=== PATIENT | male | born 1985 | race Caucasian/White ===

== ENCOUNTER 2020-07-09 09:33 | Emergency (ER) | payer BC, SELFPAY ==
[2020-07-09 09:50] VITALS: BP 132/83; PULSE 70; RESP 21; TEMP 36.8; O2SAT 99; BMI 22.6
--- NOTE | 2020-07-09 10:24 | HMH.EDUTC ---
[facility] [place] Clinical Impression: Exposure to COVID-19 virus Disposition: Home, Self-Care Condition on Discharge: Good Instructions: Preventing the Spread of Coronavirus Discharge Instructions Additional Instructions: Drink plenty of fluids. Take tylenol for pain or fever. Follow up with your regular doctor. GO TO THE ER FOR ANY WORSENING SYMPTOMS Referrals: Twan Quiros MD [Primary Care Provider] - Forms: Work/School Release Time of Disposition: 10:27 Medical Decision Making - Medical Records Medical records reviewed: No: I reviewed the patient's medical records. - Sawyer Inquiry Pt receiving controlled substance: No Vital Signs: 07/09/20 09:50 07/09/20 10:28 Temperature 98.3 F 98.3 F Temperature Source Oral Pulse Rate 70 Pulse Rate [Left Brachial] 70 Respiratory Rate 21 21 Blood Pressure 132/83 Blood Pressure [Left Arm] 132/83 Blood Pressure Mean [Left Arm] 99 Blood Pressure Source [Left Arm] Automatic Cuff Blood Pressure Position [Left Arm] Sitting 02 Sat by Pulse Oximetry 99 Orders (Tests/Meds): ORDERS Category Date Time Status Covid-19 Nasal PCR Sendout Mateusz Routine Lab 07/09/20 09:55 Received [facility] [place] HPI - General Stated complaint: covid exposure Time Seen by Provider: 07/09/20 10:00 Mode of Arrival: Ambulatory Source of Information: Patient Limitations: No Limitations Description of Symptoms (Recalled from Triage Doc. by RN): PATIENT REQUESTING COVID TEST D/T BEING INDIRECTLY EXPOSED. DENIES SYMPTOMS HEENT Symptoms (Recalled from RN notes): No Resp Symptoms (Recalled from RN notes): No Skin Symptoms (Recalled from RN notes): No MS Symptoms (Recalled from RN notes): No Functional Status (Recalled from RN notes): WNL - History of Present Illness Provider Complaint: He thinks that he was exposed to covid several days ago. He denies any symptoms other than a runny nose. - Related Data Home Medications Medication Instructions Recorded Confirmed Cetirizine HCl [Zyrtec] 10 mg PO DAILY 12/10/18 07/09/20 Allergies Allergy/AdvReac Type Severity Reaction Status Date / Time No Known Allergies Allergy Verified 12/10/18 23:40 - Worker's Comp Is this a Worker's Comp case?: No [facility] History - Hepatitis A Screen Drug use history?: No High risk sexual behaviors?: No History of sexually transmitted infection?: No Currently employed?: No Childcare worker?: No Do you have indoor plumbing?: Yes Do you have electricity?: Yes Attestation statement:: This patient has been screened for Hepatitis A risk factors. I have reviewed the patient's past medical history: Yes Medical History: Denies:: Diabetes Mellitus Type 1, Diabetes Mellitus Type 2, Internal Pacemaker Other Surgeries: No: Pacemaker - Social History Smoking Status: Current every day smoker Tobacco Type: cigarettes # Packs/Day (cigarettes): 1 Alcohol Intake: never Occupational Status: other ROS Obtained: Yes All systems reviewed & no additional complaints - Constitutional Constitutional: Reports system reviewed and no additional complaints, except as docu - Eyes Eyes: Reports system reviewed and no additional complaints, except as docu - ENT Ears, Nose, Mouth, and Throat: Reports system reviewed and no additional complaints, except as docu - Cardiovascular Cardiovascular: Reports system reviewed and no additional complaints, except as docu - Respiratory Respiratory: Yes system reviewed and no additional complaints, except as docu - Gastrointestinal Gastrointestingal: Reports: system reviewed and no additional complaints, except as docu Physical Exam - General General appearance: alert, in no apparent distress - Head Head exam: atraumatic, normocephalic, normal inspection - Eye Eye exam: Present: normal appearance, PERRL, EOMI - ENT ENT exam: Present: normal exam, normal oropharynx, mucous membranes moist, TM's normal bilaterally, normal external ear exam
[2020-07-09 10:28] VITALS: BP 132/83; PULSE 70; RESP 21; TEMP 36.8; O2SAT 99
[2020-07-10 13:38] LABS: Covid-19 Nasal PCR Sendout Lex NOT DETECTED
== END 2020-07-09 10:32 | disposition home or self-care (01) ==
PROVIDERS: Emergency Provider Nurse Practitioner Family; PCP Internal Medicine Adolescent Medicine
DX: Z20.828 Contact with and (suspected) exposure to other viral communicable diseases (principal); F17.210 Nicotine dependence, cigarettes, uncomplicated
CPT/HCPCS: 99201; U0004

== ENCOUNTER 2021-03-25 14:38 | Emergency (ER) | payer SELFPAY ==
[2021-03-25 14:38] VITALS: BP 119/80; PULSE 64; RESP 16; TEMP 36.3; O2SAT 97; BMI 21.9
--- NOTE | 2021-03-25 14:47 | HMH.EDGENADL ---
ED Disposition Clinical Impression: Nausea and vomiting Qualifiers: Vomiting type: unspecified Vomiting Intractability: non-intractable Qualified Code(s): R11.2 - Nausea with vomiting, unspecified Disposition: Home, Self-Care Condition on Discharge: Good Instructions: Nausea and Vomiting-Adult, DI for Alcohol Poisoning Additional Instructions: You have been evaluated for nausea, headache after alcohol drinking. Please hydrate. Take ibuprofen and Zofran. Avoid alcohol. Follow-up with your primary care doctor. Return to the emergency department for any new or worsening symptoms. Prescriptions: Ibuprofen [Ibuprofen 600mg Tablet] 600 mg PO Q6 #20 tab Transmission Status: Pending to [id number] ondansetron HCL [Ondansetron 4mg tab*] 4 mg PO Q6 PRN #12 tab PRN Reason: Nausea And Vomiting Transmission Status: Pending to [id number] Referrals: Twan Quiros MD [Primary Care Provider] - Time of Disposition: 16:49 - Critical Care Critical Care Time: No Attestation: On , the high probability of a clinically significant, sudden or life threatening deterioration of the following system(s) required my full and direct attention, intervention and personal management. The time I documented below is in addition to time spent performing reported procedures but includes the following listed in this critical care notation. Medical Decision Making - Medical Records Medical records reviewed: Yes: I reviewed the patient's medical records. - Sawyer Inquiry Pt receiving controlled substance: No Vital Signs: 03/25/21 14:38 Temperature 97.4 F L Temperature Source Oral Pulse Rate [Right Radial] 64 Respiratory Rate 16 Blood Pressure [Right Arm] 119/80 Blood Pressure Mean [Right Arm] 93 Blood Pressure Source [Right Arm] Automatic Cuff Blood Pressure Position [Right Arm] Right Lateral 02 Sat by Pulse Oximetry 97 Oxygen Delivery Method Room Air - Lab Data Lab Results 03/25/21 14:54: WBC 10.8, RBC 5.08, Hgb 15.4, Hct 45.2, MCV 88.9, MCH 30.4, MCHC 34.2, RDW 13.2, Plt Count 205, MPV 8.6, Neut % (Auto) 66.5, Lymph % (Auto) 22.8, Bandera % (Auto) 5.9, Eos % (Auto) 3.9, Baso % (Auto) 0.9, Neut # (Auto) 7.2, Lymph # (Auto) 2.5, Bandera # (Auto) 0.6, Eos # (Auto) 0.4, Baso # (Auto) 0.1 03/25/21 14:54: Sodium 143, Potassium 4.1, Chloride 107, Carbon Dioxide 27, Anion Gap 13.1, BUN 15, Creatinine 0.70, Estimated Creat Clear 130, Estimated GFR 127, Est GFR ( Amer) 154, Glucose 112 H, Calcium 9.4, Total Bilirubin 0.6, AST 31, ALT 24, Alkaline Phosphatase 85, Total Protein 7.8, Albumin 4.9, Globulin 2.9, Albumin/Globulin Ratio 1.7, Lipase 24 Result diagrams: 03/25/21 14:54 03/25/21 14:54 Orders (Tests/Meds): ED MEDICATIONS Discontinued Medications Generic Name Dose Route Start Last Admin Trade Name Freq PRN Reason Stop Dose Admin Sodium Chloride 1,000 mls @ 999 mls/hr 03/25/21 15:00 03/25/21 14:54 Sod Chlor 0.9% 1000ml Bag IV 03/25/21 16:00 999 mls/hr .Q1H1M CESAR Administration Ibuprofen 600 mg 03/25/21 14:47 03/25/21 14:55 Ibuprofen 600 Mg Tablet PO 03/25/21 14:48 600 mg ONCE ONE Administration Ondansetron HCl 4 mg 03/25/21 14:46 03/25/21 14:55 Ondansetron 4mg/2ml Vial IV 03/25/21 14:47 4 mg ONCE ONE Administration Medical Decision Narrative: In summary this is a 35-year-old male presenting to the emergency department with nausea and generalized malaise after drinking excessive alcohol last night. Patient clinically stable on arrival. Vital signs within normal limits. Differential diagnoses include acute pancreatitis, dehydration, anion gap. Will obtain CBC, CMP, lipase. Patient given IV fluids, 600 mg ibuprofen and 4 mg IV Zofran. Initial laboratory results are reassuring. Lipase within normal limits. No renal insufficiency. Electrolytes within normal limits. Glucose 112. On reassessment patient feeling much better after fluids, Zofran, ibuprofen.
[2021-03-25 14:59] VITALS: BP 100/73; PULSE 59; O2SAT 97
[2021-03-25 15:02] LABS: Basophils # 0.1 K/mm3 (0-0.2); Basophils % 0.9 % (0.1-2.0); Eosinophils # 0.4 K/mm3 (0.0-0.4); Eosinophils % 3.9 % (0.1-12.0); Hematocrit 45.2 % (42.0-52.0); Hemoglobin 15.4 g/dL (14.1-18.0); Lymphocytes # 2.5 K/mm3 (0.7-4.5); Lymphocytes % 22.8 % (10-50); Mean Corpuscular HGB Conc 34.2 g/dL (31.8-35.4); Mean Corpuscular Hemoglobin 30.4 pg (27.0-31.2); Mean Corpuscular Volume 88.9 fl (80-94); Mean Platelet Volume 8.6 fl (7.4-10.4); Monocytes # 0.6 K/mm3 (0.1-1.0); Monocytes % 5.9 % (1.7-9.3); Neutrophils # 7.2 K/mm3 (1.8-7.8); Neutrophils % 66.5 % (37.0-80.0); Platelet Count 205 K/mm3 (142-424); Red Blood Count 5.08 M/mm3 (4.60-6.20); Red Cell Distribution Width 13.2 % (11.5-17.5); White Blood Count 10.8 K/mm3 (4.8-10.8)
--- NOTE | 2021-03-25 15:03 | PC.NURSE ---
Pt resting with a pillow and blanket on stretcher at this time.
[2021-03-25 15:11] LABS: Chloride 107 mmol/L (98-107); Potassium 4.1 mmoL/L (3.5-5.1); Sodium 143 mmol/L (136-145)
[2021-03-25 15:14] LABS: Alanine Aminotransferase 24 U/L (12-78); Albumin Level 4.9 g/dl (3.5-5.0); Albumin/Globulin Ratio 1.7 (1.1-1.8); Alkaline Phosphatase 85 U/L (38-126); Anion Gap 13.1 mEq/L (5-15); Aspartate Amino Transferase 31 U/L (17-59); Bilirubin,Total 0.6 mg/dl (0.2-1.3); Blood Urea Nitrogen 15 mg/dl (9-20); Calcium 9.4 mg/dl (8.4-10.2); Carbon Dioxide 27 mmol/L (22.0-30.0); Creatinine Clearance Estimated 130 mL/min (50-200); Estimated Glomerular Filt Rate 127 ml/min (>60); GFR (African American) 154 ML/MIN (>60); Globulin 2.9 g/dL (1.3-3.2); Glucose 112 mg/dl (74-100); Lipase 24 U/L (23-300); Total Protein,Serum 7.8 g/dl (6.3-8.2)
[2021-03-25 16:33] VITALS: BP 105/66; PULSE 59; O2SAT 98
[2021-03-25 17:00] VITALS: BP 108/70; PULSE 66; O2SAT 97
[2021-03-25 17:01] VITALS: BP 108/70; PULSE 68; RESP 16; TEMP 36.6
== END 2021-03-25 17:24 | disposition home or self-care (01) ==
PROVIDERS: Emergency Provider Emergency Medicine; PCP Internal Medicine Adolescent Medicine
DX: F10.10 Alcohol abuse, uncomplicated (principal); R11.2 Nausea with vomiting, unspecified; R53.1 Weakness; F17.210 Nicotine dependence, cigarettes, uncomplicated
CPT/HCPCS: 80053; 83690; 85025; 96365; 96375; 99282; J2405

== ENCOUNTER → 2022-08-07 09:23 | Outpatient (CLI) | payer SELFPAY | PROVIDERS: Visit Provider Nurse Practitioner Family | DX: Z02.4 Encounter for examination for driving license (principal) ==

== ENCOUNTER → 2023-01-15 13:22 | Outpatient (CLI) | payer BC, SELFPAY ==
[2023-01-15 14:41] LABS: Basophils # 0.1 K/mm3 (0-0.2); Basophils % 0.9 % (0.1-2.0); Eosinophils # 0.3 K/mm3 (0.0-0.4); Eosinophils % 2.7 % (0.1-12.0); Hemoglobin 15.2 g/dL (14.1-18.0); Lymphocytes % 32.8 % (10-50); Mean Corpuscular HGB Conc 31.7 g/dL (31.8-35.4); Mean Corpuscular Hemoglobin 30.2 pg (27.0-31.2); Mean Corpuscular Volume 95.3 fl (80-94); Mean Platelet Volume 9.3 fl (7.4-10.4); Monocytes # 0.6 K/mm3 (0.1-1.0); Monocytes % 6.6 % (1.7-9.3); Neutrophils # 5.1 K/mm3 (1.8-7.8); Neutrophils % 56.9 % (37.0-80.0); Platelet Count 249 K/mm3 (142-424); Red Blood Count 5.04 M/mm3 (4.60-6.20); Red Cell Distribution Width 13.4 % (11.5-17.5)
[2023-01-15 14:46] LABS: Alanine Aminotransferase 24 U/L (12-78); Albumin Level 4.5 g/dl (3.5-5.0); Albumin/Globulin Ratio 1.9 (1.1-1.8); Alkaline Phosphatase 74 U/L (38-126); Anion Gap 17.4 mEq/L (5-15); Aspartate Amino Transferase 32 U/L (17-59); Bilirubin,Total 0.4 mg/dl (0.2-1.3); Blood Urea Nitrogen 11 mg/dl (9-20); Calcium 9.2 mg/dl (8.4-10.2); Carbon Dioxide 26 mmol/L (22.0-30.0); Chloride 101 mmol/L (98-107); Chol/HDL Ratio 3.5 (1-3.5); Cholesterol 141 mg/dl (140-200); Estimated Glomerular Filt Rate 126 ml/min (>60); GFR (African American) 152 ML/MIN (>60); Globulin 2.4 g/dL (1.3-3.2); Glucose 90 mg/dl (74-100); HDL Cholesterol 40 mg/dl (40-60); Potassium 4.4 mmoL/L (3.5-5.1); Sodium 140 mmol/L (136-145); Total Protein,Serum 6.9 g/dl (6.3-8.2); Triglycerides 83 mg/dl (30-150); VLDL Cholesterol 17 mg/dL (0-40)
[2023-01-15 15:02] LABS: 25-OH Vitamin D, Total 39.5 ng/mL (30-100)
[2023-01-15 15:16] LABS: Thyroid Stimulating Hormone 0.82 uIU/mL (0.465-4.68)
== END ==
PROVIDERS: PCP Nurse Practitioner Family; Visit Provider Nurse Practitioner Family
DX: L08.9 Local infection of the skin and subcutaneous tissue, unspecified; W57.XXXA Bitten or stung by nonvenomous insect and other nonvenomous arthropods, initial encounter; S40.261D Insect bite (nonvenomous) of right shoulder, subsequent encounter; B95.7 Other staphylococcus as the cause of diseases classified elsewhere
CPT/HCPCS: 80053; 80061; 82306; 84443; 85025; 87070; 87077; 87186; 87205

== ENCOUNTER 2023-07-20 16:42 | Emergency (ER) | payer SELFPAY ==
[2023-07-20 17:05] VITALS: BP 120/85; PULSE 88; RESP 18; TEMP 37.5; O2SAT 99; BMI 22.7
--- NOTE | 2023-07-20 17:05 | EXP.UTC ---
Discharge Plan Disposition Patient Disposition: Home, Self-Care Condition: Good Prescriptions Prescriptions: New benzonatate [benzonatate] 100 mg capsule 100 mg PO TIDP PRN (Reason: Cough) Qty: 30 0RF ondansetron 4 mg Tablet,Disintegrating 4 mg PO Q8H PRN (Reason: Nausea) Qty: 12 0RF Referrals Follow up/Referrals: Jorge Vilchis MD [Primary Care Provider] - See instructions Activity Restrictions/Add. Instructions Additional Instructions/Restrictions: Drink plenty of fluids. Take tylenol or ibuprofen for pain or fever. Take the medications as directed. Follow up with your regular doctor. GO TO THE ER FOR ANY WORSENING SYMPTOMS Clinical Impressions Clinical Impression: Acute viral syndrome Stand Alone Forms Stand Alone Forms: Work/School Release Instructions Patient Instructions: DI for Viral Syndrome Discharge ED Provider: Pj Nesbitt [facility] General Stated complaint: WEAKNESS, DIARRHEA, CRAMPS Time Seen by Provider: 07/20/23 17:05 History of Present Illness Provider Complaint: He states that for the past 1 day he has had n/v/d, body aches, chills, low grade fever and malaise. Related Data Previous Rx's Medication Instructions Recorded benzonatate 100 mg capsule 100 mg PO TIDP PRN Cough #30 caps 07/20/23 ondansetron 4 mg disintegrating 4 mg PO Q8H PRN Nausea #12 tabs 07/20/23 tablet Allergies Allergy/AdvReac Type Severity Reaction Status Date / Time No Known Allergies Allergy Verified 07/05/23 08:31 [facility] Disclaimer: The information contained in this section may have been updated after the patient was seen, as this information can be updated by other users. Medical History (Updated 07/20/23 @ 17:29 by Pj Nesbitt APRN) Atypical chest pain Exposure to COVID-19 virus Surgical History (Updated 07/05/23 @ 08:32 by Debbie Kay MA) H/O wisdom tooth extraction History of tonsillectomy Social History (Updated 10/28/22 @ 13:42 by Mehreen Alexandra LPN) Smoking Status: Current every day smoker tobacco type: cigarettes packs per day: 1 alcohol intake: current substance use type: denies use current occupational status: other Travel in the last 8 weeks: None ROS Obtained: Yes All systems reviewed & no additional complaints except as documented Constitutional Constitutional: Reports chills and Reports fever(s) Eyes Eyes: Denies eye discharge ENT Ears, Nose, Mouth, and Throat: Reports as per HPI Cardiovascular Cardiovascular: Denies chest pain Respiratory Respiratory: Denies chest congestion and Reports cough Gastrointestinal Gastrointestingal: Reports nausea; Denies abdominal pain, constipation, cramping, diarrhea or vomiting Musculoskeletal Musculoskeletal: Denies arthralgias Integumentary/Breasts Skin/Breast: Denies rash Neurologic Neurologic: Denies paresthesias Physical Exam General General appearance: alert and in no apparent distress Head Head exam: atraumatic, normocephalic and normal inspection Eye Eye exam: Present normal appearance, PERRL and EOMI ENT ENT exam: Present normal exam, normal oropharynx, mucous membranes moist, TM's normal bilaterally and normal external ear exam Neck Neck exam: Present normal inspection, full ROM and trachea midline; Absent meningismus or lymphadenopathy Chest Chest inspection: Present normal inspection and symmetric chest wall rise; Absent tenderness Respiratory Respiratory exam: Present normal lung sounds bilaterally; Absent respiratory distress Cardiovascular Cardiovascular exam: Present regular rate and normal rhythm; Absent JVD Abdominal Exam Abdominal exam: Present soft and normal bowel sounds; Absent distention, tenderness or guarding Extremities Exam Extremities exam: Present normal inspection, full ROM and normal capillary refill; Absent calf tenderness Back Exam Back exam: Present normal inspection; Absent tenderness Neurological Exam Neurological exam: Present alert and o
[2023-07-20 17:24] LABS: UTC Influenza A Antigen Negative (Negative)
[2023-07-20 17:25] LABS: UTC Influenza B Antigen Negative (Negative)
[2023-07-20 17:54] VITALS: BP 120/85; PULSE 88; RESP 18; TEMP 37.5; O2SAT 99
== END 2023-07-20 17:54 | disposition home or self-care (01) ==
PROVIDERS: Emergency Provider Nurse Practitioner Family; PCP Emergency Medicine
DX: R10.9 Unspecified abdominal pain (principal); R11.2 Nausea with vomiting, unspecified; R19.7 Diarrhea, unspecified; R53.1 Weakness; R05.9 Cough, unspecified; R53.81 Other malaise; F17.210 Nicotine dependence, cigarettes, uncomplicated
CPT/HCPCS: 87635; 87804; 99204; 99212; G0463

== ENCOUNTER 2023-08-27 17:18 | Emergency (ER) | payer SELFPAY ==
[2023-08-27 17:40] VITALS: BP 143/80; PULSE 74; RESP 20; TEMP 36.9; O2SAT 99; BMI 23.1
--- NOTE | 2023-08-27 18:04 | EXP.UTC ---
Discharge Plan Disposition Patient Disposition: Home, Self-Care Condition: Good Prescriptions Prescriptions: New guaifenesin [Mucinex] 600 mg tablet extended release 12hr 1,200 mg PO BID PRN (Reason: cough) Qty: 20 0RF azithromycin [Zithromax Z-Ata] 250 mg tablet See Rx Instructions .ROUTE .COMPLEX 5 Days Qty: 6 0RF Rx Instructions: For 250 mg dose pack: take 500 mg today (day 1), then 250 mg for 4 days (days 2-5) prednisone [prednisone] 20 mg tablet 20 mg PO BID 5 Days Qty: 10 0RF ugbjpuimdieoncp-uhnuwebsn-VK [Bromfed DM] 2-30-10 mg/5 mL Syrup 10 ml PO Q4H PRN (Reason: Cough) Qty: 240 0RF albuterol sulfate [Proventil HFA] 90 mcg/actuation HFA aerosol inhaler 1 - 2 inh inhalation Q6H PRN (Reason: shortness of breath or wheezing) Qty: 8.5 0RF Referrals Follow up/Referrals: Yvon Black DO [Primary Care Provider] - See instructions Activity Restrictions/Add. Instructions Additional Instructions/Restrictions: Start antibiotic today. Be sure to complete entire prescription even if feeling better Monitor temp. Tylenol every 4 hours as needed and / or ibuprofen every 6 hours as needed ( As long as your primary care physician has told you that it ok to take both. For fever/aches/pains ER if no less than 101 despite Tylenol or Motrin Humidifier/vaporizer or hot steamy shower Inhaler every 4-6 hours as needed like we discussed. If unsure how to use it, ask pharmacist to demonstrate how. Should help open airways and improve cough, wheezing, and shortness of breath Mucinex during the day for your cough and cough suppressant only at night. Be sure to drink lots of water. *Bromfed may cause drowsiness. Know how it effects you (your child) before driving, caring for small child, or sending your child to school. Not other antihistamines/allergy medications while taking bromfed *Start steroid today. Helps with inflammation therefore, cough and wheezing. Follow directions on the package. Reviewed side effects. Patient reports taking them before. Follow up IMMEDIATELY for new or worsening of symptoms OR no noticeable improvement over the next 48-72 hours. 911 immediately for any life threatening symptoms such as chest pain or difficulty breathing Clinical Impressions Clinical Impression: Bronchitis Sinusitis Qualifiers: Sinusitis location: unspecified location Chronicity: unspecified Qualified Code(s): J32.9 - Chronic sinusitis, unspecified Instructions Patient Instructions: DI for Sinusitis, Sinusitis, Acute Bronchitis Discharge ED Provider: Sarah Murry [place] HPI General Stated complaint: cough. congestion Mode of Arrival: Ambulatory Source of Information: Patient Limitations: No Limitations Time Seen by Provider: 08/27/23 18:05 Description of Symptoms (Recalled from Triage Doc. by RN): PATIENT C/O COUGH AND CHEST CONGESTION X 4 WEEKS HEENT Symptoms (Recalled from RN notes): No Resp Symptoms (Recalled from RN notes): Yes Skin Symptoms (Recalled from RN notes): No MS Symptoms (Recalled from RN notes): No Functional Status (Recalled from RN notes): WNL History of Present Illness Provider Complaint: Patient states that he has having a cough for around a month and having chest congestion and at times he will cough up some mucous at times States that today he was still having some chest congestion and now loosing his voice so he came in to get it checked Related Data Previous Rx's Medication Instructions Recorded albuterol sulfate 90 mcg/actuation 1 - 2 inh inhalation Q6H PRN 08/27/23 aerosol inhaler (Proventil HFA) shortness of breath or wheezing #8.5 grams azithromycin 250 mg tablet See Rx Instructions PO .COMPLEX 5 08/27/23 (Zithromax Z-Ata) days #6 tabs nxnnftiysxkzaeu-otdeecqvtumejib-MJ 10 ml PO Q4H PRN Cough #240 mL 08/27/23 2 mg-30 mg-10 mg/5 mL oral syrup (Bromfed DM) guaifenesin 600 mg tablet, 1,200 mg PO BID PRN cough #20
[2023-08-27 18:26] VITALS: BP 143/80; PULSE 74; RESP 20; TEMP 36.9; O2SAT 99
== END 2023-08-27 18:33 | disposition home or self-care (01) ==
PROVIDERS: Emergency Provider Nurse Practitioner; PCP Internal Medicine
DX: J20.9 Acute bronchitis, unspecified (principal); J01.90 Acute sinusitis, unspecified; R05.9 Cough, unspecified; R09.89 Other specified symptoms and signs involving the circulatory and respiratory systems; F17.210 Nicotine dependence, cigarettes, uncomplicated
CPT/HCPCS: 99212; 99214; G0463

== ENCOUNTER 2023-09-04 17:39 | Emergency (ER) | payer SELFPAY ==
[2023-09-04 17:40] VITALS: BP 134/78; PULSE 67; RESP 18; TEMP 36.8; O2SAT 99; BMI 23.5
--- NOTE | 2023-09-04 17:47 | PC.NURSE ---
DR BATEMAN AT BEDSIDE
--- NOTE | 2023-09-04 17:53 | XR_ITS ---
PROCEDURE INFORMATION: Exam: XR Chest Exam date and time: 09/04/2023 5:52 PM Age: 38 years old Clinical indication: Chest wall pain; Additional info: Left chest wall pain; Cough x 1 month TECHNIQUE: Imaging protocol: Radiologic exam of the chest. Views: 2 views. COMPARISON: CR CXR2V XR chest 2V 12/10/2018 11:43 PM FINDINGS: Lungs: No evidence of acute pulmonary disease or infiltrates; lung kc appear clear. Pleural spaces: No large effusion or pneumothorax. Heart/Mediastinum: No evidence of mediastinal widening or cardiac silhouette enlargement; the mediastinum and heart appear within normal limits for contour and size. Bones/joints: No evidence of acute osseous abnormalities within the visualized portions of the thoracic spine and ribs. Osseous structures appear appropriate for patient age. IMPRESSION: No dense parenchymal consolidation, pleural effusion, or pneumothorax.
--- NOTE | 2023-09-04 17:55 | ED_ITS ---
Discharge Plan Disposition Patient Disposition: Home, Self-Care Prescriptions Prescriptions: New ibuprofen 600 mg tablet 600 mg PO Q8H PRN (Reason: pain) 7 Days Qty: 21 0RF cyclobenzaprine 5 mg tablet 5 mg PO TID PRN (Reason: muscle spasm) 5 Days Qty: 15 0RF No Action guaifenesin [Mucinex] 600 mg tablet extended release 12hr 1,200 mg PO BID PRN (Reason: cough) Qty: 20 0RF azithromycin [Zithromax Z-Ata] 250 mg tablet See Rx Instructions .ROUTE .COMPLEX 5 Days Qty: 6 0RF Rx Instructions: For 250 mg dose pack: take 500 mg today (day 1), then 250 mg for 4 days (days 2-5) prednisone [prednisone] 20 mg tablet 20 mg PO BID 5 Days Qty: 10 0RF ftjpekqfeucqhbf-wpqrupryn-PT [Bromfed DM] 2-30-10 mg/5 mL Syrup 10 ml PO Q4H PRN (Reason: Cough) Qty: 240 0RF albuterol sulfate [Proventil HFA] 90 mcg/actuation HFA aerosol inhaler 1 - 2 inh inhalation Q6H PRN (Reason: shortness of breath or wheezing) Qty: 8.5 0RF Referrals Follow up/Referrals: Yvon Black DO [Primary Care Provider] - See instructions Clinical Impressions Clinical Impression: Chest wall muscle strain, Bronchitis, Encounter for smoking cessation counseling Discharge ED Provider: Ivan Yanez General Adult HPI General Chief complaint: PAIN Stated complaint: cough and left side pain Time Seen by Provider: 09/04/23 17:46 Mode of Arrival: Ambulatory Limitations: No Limitations Description of Symptoms (Recalled from ER Triage Doc. by RN): PT REPORTS COUGH X 1 WEEK, C/O LEFT SIDED RIB PAIN AFTER COUGHING AND FEELING A POP History of Present Illness HPI narrative: Patient is a 38-year-old male who is a chronic smoker presents today with left- sided chest wall pain after a coughing fit where he felt a pop. States that he has been coughing nearly daily for the last month has been treated with multiple medications at the urgent treatment clinic without any improvement but continues to smoke. No fevers or chills no significant shortness of breath does state that for the last several days he has had some pain in the back paraspinal musculature on the left side with any type of movement or coughing but today he had a coughing fit where he felt a pop and got significantly worse. Exacerbated with movement or touch. He is not short of breath denies any other symptoms. Also denies of the past medical history. Related Data Previous Rx's Medication Instructions Recorded albuterol sulfate 90 mcg/actuation 1 - 2 inh inhalation Q6H PRN 08/27/23 aerosol inhaler (Proventil HFA) shortness of breath or wheezing #8.5 grams azithromycin 250 mg tablet See Rx Instructions PO .COMPLEX 5 08/27/23 (Zithromax Z-Ata) days #6 tabs optlcmzopmlhfrh-dwacmauqzdmejnv-VT 10 ml PO Q4H PRN Cough #240 mL 08/27/23 2 mg-30 mg-10 mg/5 mL oral syrup (Bromfed DM) guaifenesin 600 mg tablet, 1,200 mg PO BID PRN cough #20 tabs 08/27/23 extended release 12 hr (Mucinex) prednisone 20 mg tablet 20 mg PO BID 5 days #10 tabs 08/27/23 cyclobenzaprine 5 mg tablet 5 mg PO TID PRN muscle spasm 5 09/04/23 days #15 tabs ibuprofen 600 mg tablet 600 mg PO Q8H PRN pain 7 days #21 09/04/23 tabs Allergies Allergy/AdvReac Type Severity Reaction Status Date / Time No Known Allergies Allergy Verified 07/05/23 08:31 [facility] Disclaimer: The information contained in this section may have been updated after the patient was seen, as this information can be updated by other users. Medical History (Updated 09/04/23 @ 17:58 by Ivan Yanez MD) Atypical chest pain Exposure to COVID-19 virus Surgical History (Updated 07/05/23 @ 08:32 by Debbie Kay MA) H/O wisdom tooth extraction History of tonsillectomy Social History (Updated 10/28/22 @ 13:42 by Mehreen Alexandra LPN) Smoking Status: Current every day smoker tobacco type: cigarettes packs per day: 1 alcohol intake: current substance use type: denies use current occupational status: other Travel in the last 8 weeks: None ROS Obtained: Yes All systems reviewed & no additional complaints except as documented Physical Exam General General appearance: alert and in no apparent distress Respiratory Respiratory exam: Present normal lung sounds bilaterally; Absent respiratory distress, wheezes, stridor, accessory muscle use or prolonged expiratory phase Cardiovascular Cardiovascular exam: Present regular rate; Absent tachycardia Back Exam Back 1 view image: 1. ttp Neurological Exam Neurological exam: Present alert and oriented X3 Medical Decision Making Sawyer Inquiry Pt receiving controlled substance: No Vital Signs: 09/04/23 17:40 Temperature 98.2 F Temperature Source Oral Pulse Rate [Radial] 67 Respiratory Rate 18 Blood Pressure [Right Arm] 134/78 Blood Pressure Mean [Right Arm] 96 Blood Pressure Source [Right Arm] Automatic Cuff Blood Pressure Position [Right Arm] Sitting 02 Sat by Pulse Oximetry 99 Oxygen Delivery Method Room Air Orders (Tests/Meds): ED MEDICATIONS Discontinued Medications Generic Name Dose Route Start Last Admin Trade Name Freq PRN Reason Stop Dose Admin Cyclobenzaprine HCl 5 mg 09/04/23 17:53 09/04/23 18:21 Cyclobenzaprine 10mg Tablet PO 09/04/23 17:54 5 mg ONCE ONE Administration Ketorolac Tromethamine 60 mg 09/04/23 17:53 09/04/23 18:21 Ketorolac 60mg/2ml Vial IM 09/04/23 17:54 60 mg ONCE ONE Administration ORDERS Category Date Time Status Chest XR 2 view (NOT portable) [XR chest 2V] Stat Exams 09/04/23 17:53 Taken Medical Decision Narrative: Appearing 38-year-old male presenting today with paraspinal muscular tenderness in left mid axillary chest wall tenderness after coughing fit where he felt a pop. Differential includes pneumothorax, pneumonia, musculoskeletal strain, pneumomediastinum. Will get a two-view chest x-ray to further evaluate this is pulmonary exam is completely normal I do not suspect this is anything other than musculoskeletal strain with the chronic coughing that has been having. Toradol and Flexeril have been administered. I did talk with him about smoking gordon sation. This is not consistent with a bacterial illness he is already tried numerous medications including steroids breathing treatments antibiotics etc. Reassessment 6:25 PM chest x-ray performed which I personally interpreted shows no acute cardiopulmonary emergency specifically no evidence of any abnormality left base of the lung no pneumothorax no focal consolidation etc. Patient was discharged with symptomatic care including ibuprofen and Flexeril. Critical Care Critical Care Time Critical Care Time: No
--- NOTE | 2023-09-04 18:01 | PC.NURSE ---
Pt gone to RAD
[2023-09-04] MEDS: KETOROLAC 60MG/2ML VIAL 60 MG IM (18:21)
[2023-09-04] MEDS: CYCLOBENZAPRINE 10MG TABLET 5 MG PO (18:21)
[2023-09-04 18:28] VITALS: BP 134/78; PULSE 67; RESP 18; TEMP 36.8; O2SAT 99
== END 2023-09-04 18:29 | disposition home or self-care (01) ==
PROVIDERS: Emergency Provider Student in an Organized Health Care Education/Training Program; PCP Internal Medicine
DX: S29.011A Strain of muscle and tendon of front wall of thorax, initial encounter (principal); R05.9 Cough, unspecified; F17.210 Nicotine dependence, cigarettes, uncomplicated; X50.3XXA Overexertion from repetitive movements, initial encounter
CPT/HCPCS: 71046; 96372; 99283

== ENCOUNTER 2024-02-22 10:58 | Emergency (ER) | payer SELFPAY ==
[2024-02-22] VITALS (8 sets, daily range): BP systolic 109–141; BP diastolic 73–86; PULSE 61–84; RESP 19–22; TEMP 36.6–36.7; O2SAT 96–98; BMI 23.3
--- NOTE | 2024-02-22 10:57 | ECG_ITS ---
APPROVED REPORT Exam: Resting ECG HR:62 bpm ECG Measurements Heart Rate 62 AXES CO 167 P 74 QRSd 94 QRS 87 QT 359 T 67 QTc 365 Conclusion SINUS RHYTHM NORMAL ECG Electronically signed by : DEVANTE LINARES, 02/22/2024 13:57:08
--- NOTE | 2024-02-22 11:03 | XR_ITS ---
FINAL REPORT CLINICAL HISTORY: Nonspecific chest pain COMPARISON: 12/10/2018 FINDINGS: There is an ill-defined density in the left lung base. Differential includes pneumonia overlying nipple shadow or healing posterior left 10th rib fracture. The right lung is clear.. There is no evidence of effusion or other pleural disease. The mediastinum has a normal appearance. The cardiac silhouette is unremarkable. IMPRESSION: Vague nodular density left lung base. Differential diagnosis as above. Reviewed, Interpreted and Dictated by Eri Valerio MD Transcribed by Naomi Disla Authenticated and [facility]
[2024-02-22 11:16] LABS: Chloride 108 mmol/L (98-107)
[2024-02-22 11:17] LABS: Sodium 139 mmol/L (136-145)
[2024-02-22 11:19] LABS: Alanine Aminotransferase 26 U/L (12-78); Aspartate Amino Transferase 37 U/L (17-59); Basophils # 0.1 K/mm3 (0-0.2); Basophils % 1.2 % (0.1-2.0); Blood Urea Nitrogen 13 mg/dl (9-20); Creatinine Clearance Estimated 91 mL/min (50-200); Eosinophils # 0.3 K/mm3 (0.0-0.4); Eosinophils % 3.6 % (0.1-12.0); Estimated Glomerular Filt Rate 83 ml/min (>60); GFR (African American) 100 ML/MIN (>60); Hematocrit 45.4 % (42.0-52.0); Hemoglobin 14.7 g/dL (14.1-18.0); Lymphocytes # 2.8 K/mm3 (0.7-4.5); Lymphocytes % 36.1 % (10-50); Mean Corpuscular HGB Conc 32.4 g/dL (31.8-35.4); Mean Corpuscular Hemoglobin 31.5 pg (27.0-31.2); Mean Corpuscular Volume 97.4 fl (80-94); Mean Platelet Volume 8.9 fl (7.4-10.4); Monocytes # 0.4 K/mm3 (0.1-1.0); Monocytes % 5.7 % (1.7-9.3); Neutrophils # 4.1 K/mm3 (1.8-7.8); Neutrophils % 53.4 % (37.0-80.0); Platelet Count 173 K/mm3 (142-424); Red Blood Count 4.66 M/mm3 (4.60-6.20); Red Cell Distribution Width 13.7 % (11.5-17.5); White Blood Count 7.7 K/mm3 (4.8-10.8)
[2024-02-22 11:20] LABS: Albumin Level 4.4 g/dl (3.5-5.0); Albumin/Globulin Ratio 1.7 (1.1-1.8); Alkaline Phosphatase 64 U/L (38-126); Bilirubin,Total 0.6 mg/dl (0.2-1.3); Calcium 9.4 mg/dl (8.4-10.2); Carbon Dioxide 25 mmol/L (22.0-30.0); Globulin 2.6 g/dL (1.3-3.2); Glucose 110 mg/dl (74-100)
[2024-02-22 11:33] LABS: Troponin I < 0.01 ng/ml (0.00-0.034)
--- NOTE | 2024-02-22 12:17 | PC.NURSE ---
Dr More in room
--- NOTE | 2024-02-22 12:19 | ED_ITS ---
Discharge Plan Disposition Patient Disposition: Home, Self-Care Chief Complaint: Chest Pain Prescriptions Prescriptions: No Action ibuprofen 600 mg tablet 600 mg PO Q8H PRN (Reason: pain) 7 Days Qty: 21 0RF cyclobenzaprine 5 mg tablet 5 mg PO TID PRN (Reason: muscle spasm) 5 Days Qty: 15 0RF guaifenesin [Mucinex] 600 mg tablet extended release 12hr 1,200 mg PO BID PRN (Reason: cough) Qty: 20 0RF azithromycin [Zithromax Z-Ata] 250 mg tablet See Rx Instructions .ROUTE .COMPLEX 5 Days Qty: 6 0RF Rx Instructions: For 250 mg dose pack: take 500 mg today (day 1), then 250 mg for 4 days (days 2-5) prednisone [prednisone] 20 mg tablet 20 mg PO BID 5 Days Qty: 10 0RF neddcmnufsqshrl-ostgpdxcl-DL [Bromfed DM] 2-30-10 mg/5 mL Syrup 10 ml PO Q4H PRN (Reason: Cough) Qty: 240 0RF albuterol sulfate [Proventil HFA] 90 mcg/actuation HFA aerosol inhaler 1 - 2 inh inhalation Q6H PRN (Reason: shortness of breath or wheezing) Qty: 8.5 0RF Referrals Follow up/Referrals: Mateo Coulter MD [Staff Physician] - See instructions Activity Restrictions/Add. Instructions Additional Instructions/Restrictions: At this time it was felt you are safe to be discharged home. If new or worsening symptoms please do not hesitate to return the emergency department. Please turn your Holter monitor back in as discussed and please call and schedule an appointment with cardiology as soon as you are able. Make sure to repeat your x-ray sometime soon to ensure that that spot that I found is resolving. Clinical Impressions Clinical Impression: Palpitations, Abnormal chest x-ray Discharge ED Provider: Tanmay More HPI General Chief Complaint: Chest Pain Stated Complaint: chest pain Time Seen by Provider: 02/22/24 10:58 Mode of Arrival: Ambulatory Source of Information: Patient Limitations: No Limitations Description of Symptoms (Recalled from ER Triage Doc. by RN): pt reports to ed with complaints of chest pain on the right side that started today. Pt reports left arm pain and numbness. Pt denies taking any aspirin. History of Present Illness HPI narrative: Patient is a 38-year-old male with no pertinent past medical history presents emergency department for evaluation of palpitations. History is obtained by patient at bedside. He had a similar episode approximately 4 years ago that resolved and he was told to take daily aspirin. Over the last weeks he has had palpitations and intermittent racing in his chest which returns to normal. He has intermittent slight substernal chest pain. No other acute complaints at this time. Related Data Previous Rx's Medication Instructions Recorded albuterol sulfate 90 mcg/actuation 1 - 2 inh inhalation Q6H PRN 08/27/23 aerosol inhaler (Proventil HFA) shortness of breath or wheezing #8.5 grams azithromycin 250 mg tablet See Rx Instructions PO .COMPLEX 5 08/27/23 (Zithromax Z-Ata) days #6 tabs grolfvzywldrjqr-jnyqgoxmobljsux-MT 10 ml PO Q4H PRN Cough #240 mL 08/27/23 2 mg-30 mg-10 mg/5 mL oral syrup (Bromfed DM) guaifenesin 600 mg tablet, 1,200 mg (2 x 600 mg) PO BID PRN 08/27/23 extended release 12 hr (Mucinex) cough #20 tabs prednisone 20 mg tablet 20 mg PO BID 5 days #10 tabs 08/27/23 cyclobenzaprine 5 mg tablet 5 mg PO TID PRN muscle spasm 5 09/04/23 days #15 tabs ibuprofen 600 mg tablet 600 mg PO Q8H PRN pain 7 days #21 09/04/23 tabs Allergies Allergy/AdvReac Type Severity Reaction Status Date / Time No Known Allergies Allergy Verified 07/05/23 08:31 [facility] Disclaimer: The information contained in this section may have been updated after the patient was seen, as this information can be updated by other users. Medical History (Updated 02/22/24 @ 13:24 by Tanmay More MD) Exposure to COVID-19 virus Atypical chest pain Surgical History (Updated 07/05/23 @ 08:32 by Debbie Kay MA) H/O wisdom tooth extraction History of tonsillectomy Social History (Updated 10/28/22 @ 13:42 by Mehreen Alexandra LPN) Smoking Status: Current every day smoker tobacco type: cigarettes packs per day: 1 alcohol intake: current alcohol intake frequency: holidays/special occasions only substance use type: denies use current occupational status: other Travel in the last 8 weeks: None ROS Obtained: Yes Systems reviewed as appropriate & no additional complaints except as documented Physical Exam General General appearance: alert and in no apparent distress Head Head exam: atraumatic and normocephalic Eye Eye exam: Present PERRL ENT ENT exam: Present mucous membranes moist Neck Neck exam: Present normal inspection Chest Chest inspection: Present normal inspection and symmetric chest wall rise Respiratory Respiratory exam: Present normal lung sounds bilaterally; Absent respiratory distress Cardiovascular Cardiovascular exam: Present regular rate and normal rhythm Abdominal Exam Abdominal exam: Present soft; Absent tenderness Extremities Exam Extremities exam: Present normal inspection Neurological Exam Neurological exam: Present alert and CN II-XII intact; Absent motor sensory deficit Psychiatric Psychiatric exam: Present normal affect Skin Skin exam: Present warm and dry HEART Score HEART Score HEART Score assessment performed?: Yes History (anamnesis): Slightly suspicious ECG: Normal Age: <45 years Risk factors: No known risk factors Troponin: </= normal limit HEART Score: 0 Critical Care Critical Care Time Critical Care Time: No Medical Decision Making Sawyer Inquiry Pt receiving controlled substance: No Vital Signs Vital Signs: 02/22/24 11:00 02/22/24 11:07 02/22/24 11:31 Temperature 97.9 F Temperature Source Oral Pulse Rate 67 77 Pulse Rate [Left Radial] 67 Respiratory Rate 22 19 Blood Pressure 118/73 Blood Pressure [Right Arm] 141/82 H Blood Pressure Mean 88 Blood Pressure Mean [Right Arm] 101 02 Sat by Pulse Oximetry 98 97 Oxygen Delivery Method Room Air 02/22/24 12:00 02/22/24 12:30 02/22/24 13:00 Temperature Temperature Source Pulse Rate 62 64 61 Pulse Rate [Left Radial] Respiratory Rate 19 21 Blood Pressure 110/76 Blood Pressure [Right Arm] Blood Pressure Mean 84 Blood Pressure Mean [Right Arm] 02 Sat by Pulse Oximetry 98 98 98 Oxygen Delivery Method Lab Data Labs: Lab Results 02/22/24 11:00: WBC 7.7, RBC 4.66, Hgb 14.7, Hct 45.4, MCV 97.4 H, MCH 31.5 H, MCHC 32.4, RDW 13.7, Plt Count 173, MPV 8.9, Neut % (Auto) 53.4, Lymph % (Auto) 36.1, [place] % (Auto) 5.7, Eos % (Auto) 3.6, Baso % (Auto) 1.2, Neut # (Auto) 4.1, Lymph # (Auto) 2.8, [place] # (Auto) 0.4, Eos # (Auto) 0.3, Baso # (Auto) 0.1, Sodium 139, Potassium 4.0, Chloride 108 H, Carbon Dioxide 25, Anion Gap 10.0, BUN 13, Creatinine 1.00, Estimated Creat Clear 91, Estimated GFR 83, Est GFR ( Amer) 100, Glucose 110 H, Calcium 9.4, Magnesium 1.8, Total Bilirubin 0.6, AST 37, ALT 26, Alkaline Phosphatase 64, Troponin I < 0.01, Total Protein 7.0, Albumin 4.4, Globulin 2.6, Albumin/Globulin Ratio 1.7, TSH 1.52, Free T4 1.03 02/22/24 11:00 02/22/24 11:00 Response Orders (Tests/Meds): ED MEDICATIONS Generic Name Dose Route Start Last Admin Trade Name Freq PRN Reason Stop Dose Admin Sodium Chloride 10 ml 02/22/24 11:04 Sodium Chloride 0.9% 10ml Flush Syringe IV 03/23/24 11:03 NEEDED PRN Maintain IV Site ORDERS Category Date Time Status CXR 2 view (NOT portable) [XR chest 2V] Stat Exams 02/22/24 11:03 Completed Complete Blood Count Auto Diff Stat Lab 02/22/24 11:00 Completed Comprehensive Metabolic Panel Stat Lab 02/22/24 11:00 Completed Free T4 (Free Thyroxine) Stat Lab 02/22/24 11:00 Completed MG [Magnesium] Stat Lab 02/22/24 11:00 Completed TSH [Thyroid Stimulating Hormone] Stat Lab 02/22/24 11:00 Completed Troponin I Q3H Lab 02/22/24 17:15 Ordered Troponin I Routine Lab 02/22/24 14:15 Ordered Troponin I Stat Lab 02/22/24 11:00 Completed ECG Data Tracing #1: ECG Narrative: Independently interpreted by me, rate is 62, rhythm is regular, no ST elevation in anatomical contiguous leads, QTc 365. MDM Narrative Medical Decision Narrative: In summary patient is a 38-year-old male with past medical history described above who presents emergency department for evaluation of palpitations. Patient is hemodynamically stable nontoxic-appearing upon arrival, afebrile. Differential diagnosis includes electrolyte abnormality, intermittent dysrhythmia, atypical ACS, among others. Workup be conducted with hematologic labs, chest x-ray, EKG. Patient will undergo cardiac monitoring. Workup reviewed by me, hematologic labs are nonactionable, no WAQAR or critical electrolyte abnormality, normal thyroid studies, initial troponin undetectably low. Chest x-ray informally interpreted by me, there is an opacity at the left base however patient does not have any significant cough to represent an infectious cause. Formal read differential is nipple shadow with pneumonia versus healing left rib fracture. Regardless I do not think the patient has pneumonia and treatment will be deferred. Patient will undergo Holter monitoring for 48 hours and will follow-up with cardiology as well as get repeat x-ray to assure that opacity is resolving.
[2024-02-22 12:35] LABS: Magnesium 1.8 mg/dl (1.6-2.3)
[2024-02-22 12:53] LABS: Free T4 (Free Thyroxine) 1.03 ng/dl (0.78-2.19)
--- NOTE | 2024-02-22 12:58 | PC.NURSE ---
Called RT to come place holter monitor
[2024-02-22 13:07] LABS: Thyroid Stimulating Hormone 1.52 uIU/mL (0.465-4.68)
== END 2024-02-22 13:45 | disposition home or self-care (01) ==
PROVIDERS: Emergency Provider Emergency Medicine
DX: R00.2 Palpitations (principal); R91.8 Other nonspecific abnormal finding of lung field; R07.89 Other chest pain; F17.210 Nicotine dependence, cigarettes, uncomplicated
CPT/HCPCS: 71046; 80053; 83735; 84439; 84443; 84484; 85025; 93005; 93225; 93227; 99284

== ENCOUNTER 2025-01-16 12:42 | Emergency (ER) | payer SELFPAY ==
--- NOTE | 2025-01-16 12:48 | ECG_ITS ---
APPROVED REPORT Exam: Resting ECG HR:72 bpm ECG Measurements Heart Rate 72 AXES GA 156 P 70 QRSd 95 QRS 85 QT 349 T 67 QTc 373 Conclusion Sinus rhythm Electronically signed by : CHRISTIAN FONTAINE, 01/18/2025 11:41:56
[2025-01-16 12:53] VITALS: BP 132/83; PULSE 68; RESP 18; TEMP 36.6; O2SAT 98; BMI 25.8
--- NOTE | 2025-01-16 13:18 | XR_ITS ---
PROCEDURE INFORMATION: Exam: XR Chest Exam date and time: 01/16/2025 1:27 PM Age: 39 years old Clinical indication: Other: Lightheadedness; Additional info: Left sided chest congestion TECHNIQUE: Imaging protocol: Radiologic exam of the chest. Views: 1 view. COMPARISON: No relevant prior studies available. FINDINGS: Tubes, catheters and devices: None. Lungs: The lungs appear clear. Pleural spaces: No pleural effusion. No pneumothorax. Heart/Mediastinum: Mediastinum and alfredo appear unremarkable. Bones/joints: No acute bony abnormality identified. IMPRESSION: No evidence for an acute cardiopulmonary process.
--- NOTE | 2025-01-16 13:28 | HMH.EDGENADL ---
Discharge Plan Disposition Patient Disposition: Home, Self-Care Prescriptions Prescriptions: No Action ibuprofen 600 mg tablet 600 mg PO Q8H PRN (Reason: pain) 7 Days Qty: 21 0RF cyclobenzaprine 5 mg tablet 5 mg PO TID PRN (Reason: muscle spasm) 5 Days Qty: 15 0RF guaifenesin [Mucinex] 600 mg tablet extended release 12hr 1,200 mg PO BID PRN (Reason: cough) Qty: 20 0RF azithromycin [Zithromax Z-Ata] 250 mg tablet See Rx Instructions .ROUTE .COMPLEX 5 Days Qty: 6 0RF Rx Instructions: For 250 mg dose pack: take 500 mg today (day 1), then 250 mg for 4 days (days 2-5) prednisone [prednisone] 20 mg tablet 20 mg PO BID 5 Days Qty: 10 0RF bgwuyzgkqrelxkc-vwmrxsetj-UD [Bromfed DM] 2-30-10 mg/5 mL Syrup 10 ml PO Q4H PRN (Reason: Cough) Qty: 240 0RF albuterol sulfate [Proventil HFA] 90 mcg/actuation HFA aerosol inhaler 1 - 2 inh inhalation Q6H PRN (Reason: shortness of breath or wheezing) Qty: 8.5 0RF Referrals Follow up/Referrals: Khang Parker APRN [Primary Care Provider] - See instructions Activity Restrictions/Add. Instructions Additional Instructions/Restrictions: Call your family doctor to establish care for this visit to the emergency department and schedule follow-up within 48 hours to ensure improvement. If you have any worsening of your condition or any other concerning signs or symptoms, return to the emergency department or your primary care doctor for further evaluation. Clinical Impressions Clinical Impression: Orthostasis, Episodic lightheadedness Print Language Print Language: Italian Discharge ED Provider: Butch Hansen General Adult HPI General Chief complaint: Dizziness Stated complaint: dizzy loss of balance Time Seen by Provider: 01/16/25 12:48 Mode of Arrival: Ambulatory Source of Information: Patient Description of Symptoms (Recalled from ER Triage Doc. by RN): pt presents to the ED with dizziness and feeling off balance. pt reports his head feels like it's spinning . pt reports it started yesterday morning when he got up. No pain reported. No loss of consciousness. Glucose 126. pt states hx of sinus problems but reports they have gotten worse over the past 5 days. History of Present Illness HPI narrative: Please note that above description of symptoms, in this electronic medical record under categorization of recalled from ER triage doctor by RN are reflective of an initial nursing assessment, however, is not reflective of my full history and physical exam that was personally taken and clarified. Consequentially, this preceding description of symptoms, which may include the patient's categorized chief complaint in the EMR, do not reflect my personal clinical impression, and the ultimate description of history of present illness and patient stated complaints should be deferred to this section of the note. Unless stated otherwise or congruent with this section of the note, additional signs, symptoms, or incongruence should be interpreted as inaccurate with my clinical impression. Related Data Previous Rx's ?Medication ?Instructions ?Recorded albuterol sulfate 90 mcg/actuation 1 - 2 inh inhalation Q6H PRN 08/27/23 aerosol inhaler (Proventil HFA) shortness of breath or wheezing #8.5 grams azithromycin 250 mg tablet See Rx Instructions PO .COMPLEX 5 08/27/23 (Zithromax Z-Ata) days #6 tabs eutcfxthtrfcqnn-dbdjtxcepsrvlpd-QZ 10 ml PO Q4H PRN Cough #240 mL 08/27/23 2 mg-30 mg-10 mg/5 mL oral syrup (Bromfed DM) guaifenesin 600 mg tablet, 1,200 mg (2 x 600 mg) PO BID PRN 08/27/23 extended release 12 hr (Mucinex) cough #20 tabs prednisone 20 mg tablet 20 mg PO BID 5 days #10 tabs 08/27/23 cyclobenzaprine 5 mg tablet 5 mg PO TID PRN muscle spasm 5 09/04/23 days #15 tabs ibuprofen 600 mg tablet 600 mg PO Q8H PRN pain 7 days #21 09/04/23 tabs Allergies Allergy/AdvReac Type Severity Reaction Status Date / Time No Known Allergies Allergy Verified 07/05/23 08:31 [facility] Disclaimer: The information contained in this section may have been updated after the patient was seen, as this information can be updated by other users. Medical History (Updated 01/16/25 @ 13:52 by Butch Hansen MD) Exposure to COVID-19 virus Atypical chest pain Surgical History (Updated 07/05/23 @ 08:32 by Debbie Kay MA) H/O wisdom tooth extraction History of tonsillectomy Social History (Updated 10/28/22 @ 13:42 by Mehreen Alexandra LPN) Smoking Status: Current every day smoker tobacco type: cigarettes packs per day: 1 alcohol intake: current alcohol intake frequency: holidays/special occasions only substance use type: denies use current occupational status: other Travel in the last 8 weeks?: None Have you lived/traveled outside [place] in past 30 days?: No Contact w/someone who lives/traveled outside [place] past 30 days?: No Exposure to someone with infectious disease in past 14 days?: No Do you have a fever (greater than 100.4 F or 38 C)?: No Have you tested positive for COVID-19?: No Exposed to someone with COVID-19 in past 14 days?: No Do you have a sore throat?: No Do you have a cough?: No Do you have any weakness?: No Do you have any diarrhea?: No Are you experiencing any unusual bleeding?: No Do you have any muscle aches/pain?: No Do you have any abdominal pain?: No Are you experiencing loss of taste or smell?: No Other Medical History Have you received the Flu Vaccine for this season: No Have you received the Pneumonia Vaccine: No ROS Obtained: Yes All systems reviewed & no additional complaints except as documented Physical Exam General General appearance: alert, in no apparent distress and anxious Head Head exam: normocephalic Eye Eye exam: Present normal appearance, PERRL and EOMI Neck Neck exam: Present normal inspection, full ROM and trachea midline; Absent tenderness Respiratory Respiratory exam: Present normal lung sounds bilaterally; Absent respiratory distress, wheezes, stridor, accessory muscle use or prolonged expiratory phase Cardiovascular Cardiovascular exam: Present regular rate, normal rhythm and other (Pulses equal symmetric in upper and lower extremities) Abdominal Exam Abdominal exam: Present soft; Absent distention, tenderness or pulsatile mass Extremities Exam Extremities exam: Absent edema Neurological Exam Neurological exam: Present alert, oriented X3 and CN II-XII intact; Absent motor sensory deficit Psychiatric Psychiatric exam: Present anxious Skin Skin exam: Present warm and dry; Absent diaphoresis or erythema Medical Decision Making Medical Records Medical records reviewed: Yes I reviewed the patient's medical records. Screening: Per USPSTF and CDC recommendations, given the prevalence of disease in our region, it is our hospital?s policy to screen for HIV and viral Hepatitis for all patients aged 18 and over and those with ongoing risk factors. Sawyer Inquiry Pt receiving controlled substance: No Sawyer was queried for this patient: No Vital Signs: 01/16/25 12:53 01/16/25 13:38 Temperature 97.8 F Temperature Source Oral Pulse Rate 72 Pulse Rate [Right] 68 Respiratory Rate 18 Blood Pressure 128/78 Blood Pressure [Right Arm] 132/83 Blood Pressure Mean [Right Arm] 99 Blood Pressure Source [Right Arm] Automatic Cuff Blood Pressure Position [Right Arm] Supine 02 Sat by Pulse Oximetry 98 97 Oxygen Delivery Method Room Air Lab Data Lab Results 01/16/25 12:55: WBC 10.6, RBC 4.78, Hgb 14.9, Hct 43.3, MCV 90.6, MCH 31.2, MCHC 34.4, RDW 13.0, Plt Count 190, MPV 11.6 H, Neut % (Auto) 61.8, Lymph % (Auto) 29.1, [place] % (Auto) 6.1, Eos % (Auto) 1.8, Baso % (Auto) 0.9, Neut # (Auto) 6.6, Lymph # (Auto) 3.1, [place] # (Auto) 0.7, Eos # (Auto) 0.2, Baso # (Auto) 0.1, PT 10.4, INR 0.92, APTT 26.2, Sodium 137, Potassium 3.7, Chloride 108 H, Carbon Dioxide 23, Anion Gap 9.7, BUN 8 L, Creatinine 0.90, Estimated Creat Clear 111, Estimated GFR 93, Est GFR ( Amer) 113, Glucose 140 H, Calcium 9.5, Magnesium 1.7, Total Bilirubin 0.4, AST 31, ALT 24, Alkaline Phosphatase 81, Total Protein 7.0, Albumin 4.6, Globulin 2.4, Albumin/Globulin Ratio 1.9 H, Triglycerides 145, Cholesterol 156, VLDL Cholesterol 29, HDL Cholesterol 35 L, Cholesterol/HDL Ratio 4.5 H 01/16/25 12:55 01/16/25 12:55 Orders (Tests/Meds): ED MEDICATIONS Generic Name Dose Route Start Last Admin Trade Name Freq PRN Reason Stop Dose Admin Sodium Chloride 1,000 mls @ 999 mls/hr 01/16/25 13:16 01/16/25 13:34 Sod Chlor 0.9% 1000ml Bag IV 01/16/25 14:16 999 mls/hr .Q1H1M ONE Administration ORDERS Category Date Time Status CXR --portable [XR chest portable] Stat Exams 01/16/25 13:18 Completed Complete Blood Count Auto Diff Stat Lab 01/16/25 12:55 Completed Comprehensive Metabolic Panel Stat Lab 01/16/25 12:55 Results Drug Screen,Urine Stat Lab 01/16/25 13:18 Ordered HIV Combo Stat Lab 01/16/25 12:55 Received Hemoglobin A1C Stat Lab 01/16/25 12:55 Received Hepatitis C Ab Qual. W/ RFX Stat Lab 01/16/25 12:55 Received Lipid Panel Stat Lab 01/16/25 12:55 Results Magnesium Stat Lab 01/16/25 12:55 Results NT Pro Brain Natriuretic Pep. Stat Lab 01/16/25 12:55 Received PT INR [Prothrombin Time INR] Stat Lab 01/16/25 12:55 Completed PTT [Activated Partial Thrombo Time] Stat Lab 01/16/25 12:55 Completed T4 (Thyroxine) Stat Lab 01/16/25 12:55 Results TSH [Thyroid Stimulating Hormone] Stat Lab 01/16/25 12:55 Results Troponin I Q3H Lab 01/16/25 16:30 Ordered Troponin I Q3H Lab 01/16/25 19:30 Ordered Troponin I Stat Lab 01/16/25 12:55 Results Medical Decision Narrative: 39-year-old male presenting with multiple complaints. He states that he has been dizzy intermittently since yesterday, 01/15. He states that he stood up out of bed was fine after he woke up, stood up, felt lightheaded, needed to catch himself on his dresser. That went away, stood up again, felt lightheaded, and fell onto his bed. No syncope or loss of consciousness. States that he has been feeling intermittently lightheaded and dizzy throughout today. No chest pain, nausea, vomiting, vision changes, neurologic deficits, back pain, or any other concerns. History was obtained via conversation with patient. On arrival, patient hemodynamically stable, alert, oriented x4, appropriate, GCS 15, moving all extremities spontaneously, pupils equal and reactive to light. Full physical exam performed and significant for anxious male in no acute distress. Pressured speech, mildly tangential. Patient cardiac exam with no murmurs gallops rubs, no lower extremity edema. Pulses equal and symmetric in upper and lower extremities. Lungs are clear bilaterally. He is neurologically intact otherwise. Differential includes anxiety, panic, intoxication, withdrawal, metabolic abnormality, endocrinologic abnormality, arrhythmia, orthostatic, vasovagal, among others. Patient placed on continuous cardiac monitoring and continuous pulse ox with initial blood pressure 132/83, heart rate 68, saturation 98% on room air. Independent interpretation of EKG shows sinus rhythm 72 bpm with no acute ischemic change. AK 156, QRS 95, QTc 373 with normal axis. Patient was given IV fluids for symptomatic management and correction of underlying abnormalities. Workup independently interpreted and significant for nonactionable hematologic labs. On independent interpretation of imaging, no acute cardiopulmonary space disease on chest x-ray. No pneumothorax. See radiology read for full review of final results. Heart score 0. On reevaluation, patient still resting at baseline, still no symptoms after fluids. Given patient presentation, workup, history, this most likely represents orthostatic versus vasovagal presyncope. Could be related to BPPV. Patient having no neurologic deficits so appropriate for outpatient management. Because patient at baseline without signs or symptoms of clinical decompensation, deemed appropriate for discharge. Results were relayed to patient who voiced understanding and were agreeable to outpatient management and follow up. I discussed my clinical impression with patient and answered all questions. At this time, the evidence for any other entities in the differential is insufficient to warrant any further testing or ED observation. This was explained as well. Advisory was given that persistent or worsening symptoms require further evaluation. I confirmed the understanding of this discussion. Box Truck Owner Operator disclaimer Much of this encounter note is an electronic installer metal flooring spoken language to printed text. Electronic installer metal flooring of the spoken language may permit errors. Although I have reviewed the note, some errors may still exist. Critical Care Critical Care Time Critical Care Time: No
[2025-01-16 13:30] LABS: Basophils # 0.1 K/mm3 (0-0.2); Basophils % 0.9 % (0.1-2.0); Eosinophils # 0.2 Kmm3 (0.0-0.4); Eosinophils % 1.8 % (0.1-12.0); Hematocrit 43.3 % (42.0-52.0); Hemoglobin 14.9 g/dL (14.1-18.0); Immature Granulocytes # 0.03 10^3uL; Immature Granulocytes % 0.3 %; Lymphocytes # 3.1 K/mm3 (0.7-4.5); Lymphocytes % 29.1 % (10-50); Mean Corpuscular HGB Conc 34.4 g/dL (31.8-35.4); Mean Corpuscular Hemoglobin 31.2 pg (27.0-31.2); Mean Corpuscular Volume 90.6 fl (80-94); Mean Platelet Volume 11.6 fl (7.4-10.4); Monocytes # 0.7 K/mm3 (0.1-1.0); Monocytes % 6.1 % (1.7-9.3); Neutrophils # 6.6 K/mm3 (1.8-7.8); Neutrophils % 61.8 % (37.0-80.0); Nucleated Red Blood Cells # 0 10^3/uL; Nucleated Red Blood Cells % 0 %; Platelet Count 190 K/mm3 (142-424); Red Blood Count 4.78 M/mm3 (4.60-6.20); Red Cell Distribution Width-SD 42.9 fL; White Blood Count 10.6 K/mm3 (4.8-10.8)
[2025-01-16 13:31] LABS: Albumin Level 4.6 g/dl (3.5-5.0); Chloride 108 mmol/L (98-107); Sodium 137 mmol/L (136-145)
[2025-01-16 13:32] LABS: Potassium 3.7 mmoL/L (3.5-5.1)
[2025-01-16 13:34] LABS: Alanine Aminotransferase 24 U/L (12-78); Albumin/Globulin Ratio 1.9 (1.1-1.8); Alkaline Phosphatase 81 U/L (38-126); Anion Gap 9.7 mEq/L (5-15); Aspartate Amino Transferase 31 U/L (17-59); Bilirubin,Total 0.4 mg/dl (0.2-1.3); Blood Urea Nitrogen 8 mg/dl (9-20); Carbon Dioxide 23 mmol/L (22.0-30.0); Cholesterol 156 mg/dl (140-200); Creatinine Clearance Estimated 111 mL/min (50-200); Estimated Glomerular Filt Rate 93 ml/min (>60); GFR (African American) 113 ML/MIN (>60); Globulin 2.4 g/dL (1.3-3.2); Triglycerides 145 mg/dl (30-150); VLDL Cholesterol 29 mg/dL (0-40)
[2025-01-16] MEDS: 0.9 % SODIUM CHLORIDE 1000ML 1,000 ML 999 ML IV (13:34)
[2025-01-16 13:35] LABS: Calcium 9.5 mg/dl (8.4-10.2); Chol/HDL Ratio 4.5 (1-3.5); Glucose 140 mg/dl (74-100); HDL Cholesterol 35 mg/dl (40-60); Magnesium 1.7 mg/dl (1.6-2.3)
[2025-01-16 13:38] VITALS: BP 128/78; PULSE 72; O2SAT 97
[2025-01-16 13:45] LABS: Direct LDL Cholesterol 84.73 mg/dL (100-129)
[2025-01-16 13:49] LABS: NT Pro Brain Natriuretic Pep. < 20.0 pg/mL (0-125)
[2025-01-16 13:50] LABS: Activated Partial Thrombo Time 26.2 seconds (22.8-30.6)
[2025-01-16 13:52] LABS: INR 0.92 (0.9-1.1); Prothrombin Time 10.4 seconds (10.1-12.5)
[2025-01-16 13:57] LABS: T4 (Thyroxine) 10.7 ug/dl (5.53-11.0)
[2025-01-16 14:00] VITALS: BP 118/75; PULSE 69; O2SAT 98
[2025-01-16 14:00] LABS: Troponin I < 0.01 ng/ml (0.00-0.034)
[2025-01-16 14:04] LABS: HIV Combo NEGATIVE (Negative)
[2025-01-16 14:10] LABS: Thyroid Stimulating Hormone 1.16 uIU/mL (0.465-4.68)
[2025-01-16 14:11] LABS: Hepatitis C Ab Qual. W/ RFX NEGATIVE (Negative)
[2025-01-16 14:18] VITALS: BP 118/75; PULSE 69; RESP 16; TEMP 36.7; O2SAT 98
[2025-01-16 14:25] LABS: Hemoglobin A1C 5.6 % (4.0-6.0)
== END 2025-01-16 14:19 | disposition home or self-care (01) ==
PROVIDERS: Emergency Provider Emergency Medicine; PCP Nurse Practitioner Family
DX: I95.1 Orthostatic hypotension (principal); R42 Dizziness and giddiness; F17.210 Nicotine dependence, cigarettes, uncomplicated; Z11.59 Encounter for screening for other viral diseases; Z11.4 Encounter for screening for human immunodeficiency virus [HIV]
CPT/HCPCS: 71045; 80053; 80061; 83036; 83735; 83880; 84436; 84443; 84484; 85025; 85610; 85730; 86803; 87389; 93005; 96360; 99285; J7030

== ENCOUNTER 2025-05-09 01:21 | Emergency (ER) | payer SELFPAY ==
[2025-05-09 01:31] VITALS: BP 107/62; PULSE 96; RESP 18; TEMP 37; O2SAT 94; BMI 23.3
[2025-05-09 01:42] VITALS: BP 111/58; PULSE 121; O2SAT 98
--- NOTE | 2025-05-09 01:44 | XR_ITS ---
PROCEDURE INFORMATION: Exam: XR Chest Exam date and time: 05/09/2025 1:40 AM Age: 39 years old Clinical indication: Cough; Additional info: Cough x2w TECHNIQUE: Imaging protocol: Radiologic exam of the chest. Views: 2 views. COMPARISON: CR XR CHEST PORTABLE 01/16/2025 1:27 PM FINDINGS: Lungs: Bronchial inflammation is evident. Pulmonary hyperinflation can be seen with COPD or Marfanoid body habitus. Pleural spaces: Unremarkable. No pleural effusion. No pneumothorax. Heart/Mediastinum: Unremarkable. No cardiomegaly. Bones/joints: Unremarkable. IMPRESSION: 1. Findings of mild bronchial inflammation/bronchitis, new from prior. No consolidation. 2. Pulmonary hyperinflation can be seen with COPD, air trapping from small airway infectious/inflammatory process, or Marfanoid body habitus.
[2025-05-09 01:49] LABS: Influenza A, PCR Not Detected (NotDetected); Influenza B, PCR Not Detected (NotDetected)
[2025-05-09] MEDS: IBUPROFEN 800 MG TABLET PO (01:54)
[2025-05-09 02:00] VITALS: BP 126/69; PULSE 92; O2SAT 97
[2025-05-09 02:30] VITALS: BP 119/68; PULSE 105; O2SAT 95
--- NOTE | 2025-05-09 02:32 | HMH.EDGENADL ---
Discharge Plan Disposition Patient Disposition: Home, Self-Care Condition: Good Prescriptions Prescriptions: New prednisone 50 mg tablet 50 mg PO DAILY 3 Days Qty: 4 0RF No Action ibuprofen 600 mg tablet 600 mg PO Q8H PRN (Reason: pain) 7 Days Qty: 21 0RF cyclobenzaprine 5 mg tablet 5 mg PO TID PRN (Reason: muscle spasm) 5 Days Qty: 15 0RF guaifenesin [Mucinex] 600 mg tablet extended release 12hr 1,200 mg PO BID PRN (Reason: cough) Qty: 20 0RF azithromycin [Zithromax Z-Ata] 250 mg tablet See Rx Instructions .ROUTE .COMPLEX 5 Days Qty: 6 0RF Rx Instructions: For 250 mg dose pack: take 500 mg today (day 1), then 250 mg for 4 days (days 2-5) prednisone [prednisone] 20 mg tablet 20 mg PO BID 5 Days Qty: 10 0RF pkukzsriombaghr-uzudlrjbs-OO [Bromfed DM] 2-30-10 mg/5 mL Syrup 10 ml PO Q4H PRN (Reason: Cough) Qty: 240 0RF albuterol sulfate [Proventil HFA] 90 mcg/actuation HFA aerosol inhaler 1 - 2 inh inhalation Q6H PRN (Reason: shortness of breath or wheezing) Qty: 8.5 0RF Referrals Follow up/Referrals: Khang Parker APRN [Primary Care Provider, Family Practice] - See instructions Activity Restrictions/Add. Instructions Additional Instructions/Restrictions: You were evaluated in the ER and are believed to be appropriate for discharge at this time. Take Tylenol and ibuprofen if needed for pain, do not exceed the recommended dose on the bottle. Be cautious taking Tylenol (acetaminophen) if you also take DayQuil or NyQuil as these medications contain acetaminophen already. Drink water and eat a small snack each time you take these medications to avoid side effects. Wash your hands frequently to avoid spreading your illness. Take the prescribed prednisone as directed to help with bronchitis. Make an appointment with your primary care doctor for reevaluation in 2 to 3 days. Return to the ER with any new, worsening, or otherwise concerning symptoms. Clinical Impressions Clinical Impression: Bronchitis, Nasal congestion, Sore throat, Body aches, COVID-19 Print Language Print Language: Polish Discharge ED Provider: Erazo,Mikalah General Adult HPI General Chief complaint: Upper Respiratory Infection Stated complaint: chills, aches, cough, chest congestion, weakness Time Seen by Provider: 05/09/25 01:28 Mode of Arrival: Ambulatory Source of Information: Patient Description of Symptoms (Recalled from ER Triage Doc. by RN): pt reports with body aches, chills, and cough that began wednesday and resolved but began again worse History of Present Illness HPI narrative: 39-year-old male presents to the ER complaining of bodyaches, chills, cough, congestion, sore throat. Household members have similar symptoms that also started in the last 1 to 2 days. Patient reports for the last couple weeks he has had a cough but since these new symptoms started it has gotten worse. He denies chest pain or difficulty breathing. No headaches or dizziness, no numbness, tingling, or weakness, no nausea or vomiting. Patient took DayQuil earlier with only mild relief of symptoms. No other complaints or concerns. Related Data Previous Rx's ?Medication ?Instructions ?Recorded albuterol sulfate 90 mcg/actuation 1 - 2 inh inhalation Q6H PRN 08/27/23 aerosol inhaler (Proventil HFA) shortness of breath or wheezing #8.5 grams azithromycin 250 mg tablet See Rx Instructions PO .COMPLEX 5 08/27/23 (Zithromax Z-Ata) days #6 tabs etzrtfmwokezjje-qomjdddeoymevcn-MV 10 ml PO Q4H PRN Cough #240 mL 08/27/23 2 mg-30 mg-10 mg/5 mL oral syrup (Bromfed DM) guaifenesin 600 mg tablet, 1,200 mg (2 x 600 mg) PO BID PRN 08/27/23 extended release 12 hr (Mucinex) cough #20 tabs prednisone 20 mg tablet 20 mg PO BID 5 days #10 tabs 08/27/23 cyclobenzaprine 5 mg tablet 5 mg PO TID PRN muscle spasm 5 09/04/23 days #15 tabs ibuprofen 600 mg tablet 600 mg PO Q8H PRN pain 7 days #21 09/04/23 tabs prednisone 50 mg tablet 50 mg PO DAILY 3 days #4 tabs 05/09/25 Allergies Allergy/AdvReac Type Severity Reaction Status Date / Time No Known Allergies Allergy Verified 07/05/23 08:31 [facility] Disclaimer: The information contained in this section may have been updated after the patient was seen, as this information can be updated by other users. Medical History (Updated 05/09/25 @ 03:09 by Jitendra Erazo MD) Exposure to COVID-19 virus Atypical chest pain Surgical History (Updated 07/05/23 @ 08:32 by Debbie Kay MA) H/O wisdom tooth extraction History of tonsillectomy Social History (Updated 10/28/22 @ 13:42 by Mehreen Alexandra LPN) Smoking Status: Current every day smoker tobacco type: cigarettes packs per day: 1 alcohol intake: current alcohol intake frequency: holidays/special occasions only substance use type: denies use current occupational status: other Travel in the last 8 weeks?: None Have you lived/traveled outside US in past 30 days?: No Contact w/someone who lives/traveled outside US past 30 days?: No Exposure to someone with infectious disease in past 14 days?: No Do you have a fever (greater than 100.4 F or 38 C)?: No Have you tested positive for COVID-19?: No Exposed to someone with COVID-19 in past 14 days?: No Do you have a sore throat?: Yes Do you have a cough?: Yes Do you have any weakness?: Yes Do you have any diarrhea?: No Are you experiencing any unusual bleeding?: No Do you have any muscle aches/pain?: Yes Do you have any abdominal pain?: No Are you experiencing loss of taste or smell?: No Other Medical History Have you received the Flu Vaccine for this season: No Have you received the Pneumonia Vaccine: No ROS Obtained: Yes Systems reviewed as appropriate & no additional complaints except as documented Per HPI Physical Exam General General appearance: alert and in no apparent distress Head Head exam: atraumatic and normocephalic Eye Eye exam: Present PERRL and EOMI ENT ENT exam: Present mucous membranes moist and other (Mild posterior oropharyngeal erythema without tonsillomegaly or exudate) Neck Neck exam: Present normal inspection and full ROM; Absent lymphadenopathy Chest Chest inspection: Present symmetric chest wall rise; Absent tenderness Respiratory Respiratory exam: Present normal lung sounds bilaterally and other (95% on room air); Absent respiratory distress, wheezes or stridor Cardiovascular Cardiovascular exam: Present regular rate (Heart rate 95 during exam) and normal rhythm Abdominal Exam Abdominal exam: Present soft; Absent distention, tenderness, guarding or rebound Extremities Exam Extremities exam: Present full ROM; Absent edema Neurological Exam Neurological exam: Present alert and oriented X3; Absent motor sensory deficit Psychiatric Psychiatric exam: Present normal affect and normal mood Skin Skin exam: Present warm and dry Medical Decision Making Medical Records Medical records reviewed: Yes I reviewed the patient's medical records. Screening: Per USPSTF and CDC recommendations, given the prevalence of disease in our region, it is our hospital?s policy to screen for HIV and viral Hepatitis for all patients aged 18 and over and those with ongoing risk factors. Sawyer Inquiry Pt receiving controlled substance: No Vital Signs: 05/09/25 01:31 05/09/25 01:42 05/09/25 02:00 Temperature 98.6 F Temperature Source Oral Pulse Rate 121 H 92 H Pulse Rate [Right] 96 H Respiratory Rate 18 Blood Pressure 111/58 L 126/69 Blood Pressure [Right Arm] 107/62 L Blood Pressure Mean [Right Arm] 77 02 Sat by Pulse Oximetry 94 L 98 97 05/09/25 02:30 Temperature Temperature Source Pulse Rate 105 H Pulse Rate [Right] Respiratory Rate Blood Pressure 119/68 Blood Pressure [Right Arm] Blood Pressure Mean [Right Arm] 02 Sat by Pulse Oximetry 95 Lab Data Lab Results 05/09/25 01:29: SARS-CoV-2 (PCR) Detected A, Influenza Type A (PCR) Not detected, Influenza Type B (PCR) Not detected, RSV (PCR) Not detected, Rhinovirus (PCR) Not detected Orders (Tests/Meds): ED MEDICATIONS Discontinued Medications Generic Name Dose Route Start Last Admin Trade Name Freq PRN Reason Stop Dose Admin Ibuprofen 800 mg 05/09/25 01:45 05/09/25 01:54 Ibuprofen 800 Mg Tablet PO 05/09/25 01:46 800 mg ONCE ONE Administration Prednisone 40 mg 05/09/25 03:06 05/09/25 03:11 Prednisone 20mg Tab PO 05/09/25 03:07 40 mg ONCE ONE Administration ORDERS Category Date Time Status CXR 2 view (NOT portable) [XR chest 2V] Stat Exams 05/09/25 01:44 Completed Mini Respiratory Panel Stat Lab 05/09/25 01:29 Completed Medical Decision Narrative: In summary, this 39-year-old male presents to the emergency department today with cough, congestion, sore throat, body aches, chills. On initial evaluation patient is hemodynamically stable, afebrile, saturating well on room air, lungs clear bilaterally, cardiopulmonary exam benign, abdominal exam benign, there is mild posterior oropharyngeal erythema without tonsillomegaly or exudates, no lymphadenopathy. Differential diagnosis includes but is not limited to viral syndrome including but not limited to COVID, influenza, RSV, rhinovirus, I also considered the possibility of bronchitis, pneumonia with patient's prolonged cough. Based on these concerns, I ordered chest x-ray, viral swab. Patient received ibuprofen for treatment since the DayQuil he took contains acetaminophen. Chest x-ray personally interpreted demonstrates mild findings of bronchitis but no lobar infiltrate or other acute abnormality. See radiology read for final interpretation. Labs reviewed by me demonstrate patient is positive for COVID. This is consistent with his symptoms. Patient is receiving a dose of prednisone for symptomatic management of bronchitis and this was provided as a prescription as well. Patient was given instructions on continued symptomatic monitoring and management, medication use, follow-up, and strict return precautions for the ER. He indicated understanding and the patient was discharged in stable condition. Critical Care Critical Care Time Critical Care Time: No
[2025-05-09 03:08] LABS: Coronavirus 19, PCR Detected (NotDetected)
[2025-05-09 03:17] VITALS: BP 125/74; PULSE 63; RESP 18; TEMP 37; O2SAT 97
== END 2025-05-09 03:18 | disposition home or self-care (01) ==
PROVIDERS: Emergency Provider Emergency Medicine; PCP Nurse Practitioner Family
DX: U07.1 COVID-19 (principal); J20.8 Acute bronchitis due to other specified organisms; F17.210 Nicotine dependence, cigarettes, uncomplicated
CPT/HCPCS: 71046; 87631; 99283

== ENCOUNTER 2025-05-14 11:31 | Emergency (ER) | payer SELFPAY ==
[2025-05-14 11:39] VITALS: BP 148/98; PULSE 65; RESP 19; TEMP 36.7; O2SAT 97; BMI 22.6
--- NOTE | 2025-05-14 11:43 | PC.NURSE ---
bilateral eyes 20/40 left eye 20/40 right eye 20/30
--- NOTE | 2025-05-14 12:13 | ED_ITS ---
Discharge Plan Disposition Patient Disposition: Home, Self-Care Condition: Fair Prescriptions Prescriptions: No Action ibuprofen 600 mg tablet 600 mg PO Q8H PRN (Reason: pain) 7 Days Qty: 21 0RF cyclobenzaprine 5 mg tablet 5 mg PO TID PRN (Reason: muscle spasm) 5 Days Qty: 15 0RF guaifenesin [Mucinex] 600 mg tablet extended release 12hr 1,200 mg PO BID PRN (Reason: cough) Qty: 20 0RF azithromycin [Zithromax Z-Ata] 250 mg tablet See Rx Instructions .ROUTE .COMPLEX 5 Days Qty: 6 0RF Rx Instructions: For 250 mg dose pack: take 500 mg today (day 1), then 250 mg for 4 days (days 2-5) prednisone [prednisone] 20 mg tablet 20 mg PO BID 5 Days Qty: 10 0RF qphaiuxvxuygqni-rsddhvuih-UJ [Bromfed DM] 2-30-10 mg/5 mL Syrup 10 ml PO Q4H PRN (Reason: Cough) Qty: 240 0RF albuterol sulfate [Proventil HFA] 90 mcg/actuation HFA aerosol inhaler 1 - 2 inh inhalation Q6H PRN (Reason: shortness of breath or wheezing) Qty: 8.5 0RF prednisone 50 mg tablet 50 mg PO DAILY 3 Days Qty: 4 0RF Referrals Follow up/Referrals: Provider,Referral, MD [Primary Care Provider, Medical] - See instructions Activity Restrictions/Add. Instructions Additional Instructions/Restrictions: You can use the erythromycin ointment on your eye every 8 hours as needed for lubrication and irritation. Follow-up with your primary care doctor if symptoms do not improve over the next several days. If you develop any new or worsening symptoms, such as worsening vision loss, vision changes, or if you become concerned for your health for any reason, return to the emergency department for evaluation Clinical Impressions Clinical Impression: Abrasion, corneal Print Language Print Language: Khmer Discharge ED Provider: Vitaliy Bethea Adult [facility] General Chief complaint: Eye Problems Stated complaint: at end stage of covid, having blurred vision Time Seen by Provider: 05/14/25 11:41 Mode of Arrival: Ambulatory Source of Information: Patient Description of Symptoms (Recalled from ER Triage Doc. by RN): pt presents to ED with c/o blurry vision. pt reports symptoms began approx 1 hour ago, pt states that he had covid approx 1 week ago History of Present Illness HPI narrative: Jorge Reynaga is a 39y male with no significant past medical history who presents to the emergency department for complaints of vision changes. Patient states that he was diagnosed with COVID approximately 1 week ago. 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 He states that he thought this was someone present in the left eye to but that has since resolved. Patient states that he felt like there was a film over his eyes but it did not improve with blinking. He denies any pain in the eye. He did state that he felt like something was in the eye at 1 point but no longer feels that sensation. He denies any focal numbness or weakness. He states that he does not have a headache. He reports that the visual changes that he was seeing previously appear to have resolved. Related Data Previous Rx's ?Medication ?Instructions ?Recorded albuterol sulfate 90 mcg/actuation 1 - 2 inh inhalatio n Q6H PRN 08/27/23 aerosol inhaler (Proventil HFA) shortness of breath or wheezing #8.5 grams azithromycin 250 mg tablet See Rx Instructions PO .COM PLEX 5 08/27/23 (Zithromax Z-Ata) days #6 tabs sdcllqwsattkakf-byctwokqsrqdqjy-YE 10 ml PO Q4H PRN Co ugh #240 mL 08/27/23 2 mg-30 mg-10 mg/5 mL oral syrup (Bromfed DM) guaifenesin 600 mg tablet, 1,200 mg (2 x 600 mg) PO BI D PRN 08/27/23 extended release 12 hr (Mucinex) cough #20 tabs prednisone 20 mg tablet 20 mg PO BID 5 days #10 tabs 08/27/23 cyclobenzaprine 5 mg tablet 5 mg PO TID PRN muscle spa sm 5 09/04/23 days #15 tabs ibuprofen 600 mg tablet 600 mg PO Q8H PRN pain 7 day s #21 09/04/23 tabs prednisone 50 mg tablet 50 mg PO DAILY 3 days #4 tab s 05/09/25 Allergies Allergy/AdvReac Type Severity Reaction Status Date / Time No Known Allergies Allergy Verified 07/05/23 08:31 [facility] Disclaimer: The information contained in this section may have been updated after the patient was seen, as this information can be updated by other users. Medical History (Updated 05/14/25 @ 12:13 by Vitaliy Bethea MD) Exposure to COVID-19 virus Atypical chest pain Surgical History (Updated 07/05/23 @ 08:32 by Debbie Kay MA) H/O wisdom tooth extraction History of tonsillectomy Social History (Updated 10/28/22 @ 13:42 by Mehreen Alexandra LPN) Smoking Status: Current every day smoker tobacco type: cigarettes packs per day: 1 alcohol intake: current alcohol intake frequency: holidays/special occasions only substance use type: denies use current occupational status: other Travel in the last 8 weeks?: None Have you lived/traveled outside US in past 30 days?: No Contact w/someone who lives/traveled outside US past 30 days?: No Exposure to someone with infectious disease in past 14 days?: No Do you have a fever (greater than 100.4 F or 38 C)?: No Have you tested positive for COVID-19?: No Exposed to someone with COVID-19 in past 14 days?: No Do you have a sore throat?: No Do you have a cough?: No Do you have any weakness?: No Do you have any diarrhea?: No Are you experiencing any unusual bleeding?: No Do you have any muscle aches/pain?: No Do you have any abdominal pain?: No Are you experiencing loss of taste or smell?: No Other Medical History Have you received the Flu Vaccine for this season: No Have you received the Pneumonia Vaccine: No ROS Obtained: Yes Systems reviewed as appropriate & no additional complaints e xcept as documented Physical Exam General General appearance: alert and in no apparent distress Head Head exam: atraumatic Eye Eye exam: Present normal appearance, PERRL, EOMI and other (Fluorescein staining revealed increased uptake at the 9 o'clock position without Sidel sign. No foreign body is noted.); Absent scleral icterus, conjunctival redness, nystagmus or periorbital swelling ENT ENT exam: Present normal external ear exam Neck Neck exam: Present full ROM Chest Chest inspection: Present symmetric chest wall rise Respiratory Respiratory exam: Present normal lung sounds bilaterally; Absent respiratory distress, wheezes or stridor Cardiovascular Cardiovascular exam: Present regular rate and normal rhythm Abdominal Exam Abdominal exam: Present soft; Absent tenderness or guarding exam: Present deferred Extremities Exam Extremities exam: Present normal inspection Back Exam Back exam: Present normal inspection Neurological Exam Neurological exam: Present alert, oriented X3, CN II-XII intact and normal gait; Absent motor sensory deficit Psychiatric Psychiatric exam: Present normal affect Skin Skin exam: Present warm and dry Medical Decision Making Medical Records Screening: Per USPSTF and CDC recommendations, given the prevalence of disease in our region, it is our hospital?s policy to screen for HIV and viral Hepatitis for all patients aged 18 and over and those with ongoing risk factors. Sawyer Inquiry Pt receiving controlled substance: No Vital Signs: 05/14/25 11:39 05/14/25 12:20 Temperature 98.1 F 98.1 F Temperature Source Oral Pulse Rate 65 Pulse Rate [Left Radial] 65 Respiratory Rate 19 16 Blood Pressure 148/98 H Blood Pressure [Right Arm] 148/98 H Blood Pressure Mean [Right Arm] 114 02 Sat by Pulse Oximetry 97 Oxygen Delivery Method Room Air Orders (Tests/Meds): ED MEDICATIONS Discontinued Medications Generic Name Dose Route Start Last Admin Trade Name Freq PRN Reason Stop Dose Admin Erythromycin 1 gm 05/14/25 12:11 05/14/25 12:16 Erythromycin Base 1 Gm Oint...G. OP 05/14/25 12:12 1 gm ONCE ONE Administration ORDERS Category Date Time Status POCUS Point of Care (ER Only) Stat Exams 05/14/25 11:49 Completed Medical Decision Narrative: Jorge Reynaga is a 39y male with no significant past medical history who presents to the emergency department for complaints of vision changes. Patient states that he was diagnosed with COVID approximately 1 week ago. 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 He states that he thought this was someone present in the left eye to but that has since resolved. Patient states that he felt like there was a film over his eyes but it did not improve with blinking. He denies any pain in the eye. He did state that he felt like something was in the eye at 1 point but no longer feels that sensation. He denies any focal numbness or weakness. He states that he does not have a headache. He reports that the visual changes that he was seeing previously appear to have resolved. On arrival, patient is hemodynamically stable, no acute respiratory distress, breathing comfortably with oxygen saturation 97% on room air. Physical exam, stated above, revealed an overall well-appearing male in no distress. He ambulated without abnormalities in his gait. He has no focal neurological deficits. Full strength and sensation in all extremities. Cranial nerves II through XII intact. No dysdiadochokinesia. Normal finger-nose testing. Normal vecz-pq-dhha testing. Eye exam shows PERRLA. Extraocular movements intact. No obvious foreign bodies are appreciated. Visual kc appear grossly intact. Fluorescein staining revealed an area of increased uptake at the 9 o'clock position along the lateral aspect of the iris without Sidel sign. Differential diagnosis includes, but is not limited to: Corneal abrasion, retinal detachment, vitreous hemorrhage, vitreous detachment, low concern for CRAO versus CRVO this patient symptoms were initially bilateral and then lateralized to the right eye. Could be a component of migraine prodrome, however patient denies any current headache. He states that he has had headaches before. CTA imaging of the head and neck as well as CT head were considered, however there is low concern for stroke etiology at this time is felt the radiation exposure outweighs potential benefits at this time. Will perform [id number] ocular ultrasound to rule out retinal/vitreous etiology. point of care ultrasound performed by me personally of both eyes shows no retinal detachment, vitreous hemorrhage or vitreous detachment. Optic nerve sheath diameter is normal bilaterally, low concern for optic neuritis. Fluorescein staining of the right eye Showed a small area of increased uptake at the 9 o'clock position along the lateral aspect of the right eye without Sidel sign. This coincides with the laterality of patient's right eye symptoms and is consistent with a corneal abrasion. Will treat patient with erythromycin ointment here today. This felt that he is appropriate for discharge at this time. I did give him strict return precautions. All questions were answered. He demonstrated understanding and was in agreement this plan. He was then discharged from the emergency department in stable condition. Procedures Limited Ultrasound Interpretation:: Limited ocular ultrasound Indication: Vision changes Identified structures: - Both eyes Findings: Right eye: Retina: Normal Lens: Normal Vitreous body: Anechoic Optic nerve sheath diameter: Normal (<6mm) Foreign body: Absent Left eye: Retina: Normal Lens: Normal Vitreous body: Anechoic Optic nerve sheath diameter: Normal (<6mm) Foreign body: Absent Impression: Right eye: -Normal ocular ultrasound Left eye: -Normal ocular ultrasound Images were saved to permanent archive The study was technically adequate CPT 21110-43 This study was performed by me, and I personally interpreted all images/videos. Based on my clinical judgement, these images were adequate and did not necessitate further imaging. Critical Care Critical Care Time Critical Care Time: No
[2025-05-14] MEDS: ERYTHROMYCIN BASE 1 GM OINT...G. OP (12:16)
[2025-05-14 12:20] VITALS: BP 148/98; PULSE 65; RESP 16; TEMP 36.7; O2SAT 99
== END 2025-05-14 12:21 | disposition home or self-care (01) ==
PROVIDERS: Emergency Provider Student in an Organized Health Care Education/Training Program
DX: S05.01XA Injury of conjunctiva and corneal abrasion without foreign body, right eye, initial encounter (principal); W44.9XXA Unspecified foreign body entering into or through a natural orifice, initial encounter
CPT/HCPCS: 99283

== ENCOUNTER 2025-07-05 12:29 | Outpatient (CLI) | payer OTHER, SELFPAY ==
--- NOTE | 2025-07-05 12:33 | XR_ITS ---
FINAL REPORT CLINICAL HISTORY: r/o FB, cut hand on rusted metal pipe, 3rd metatarsal area FINDINGS: LEFT HAND 2 views were obtained. There is no acute fracture or dislocation. Joint spaces are maintained. No acute soft tissue abnormality is seen. No radiopaque foreign body is identified. IMPRESSION: No acute bony abnormality. Reviewed, Interpreted and Dictated by Kalyan May MD Transcribed by Mragaret Ro Authenticated and . [facility]
== END 2025-07-05 23:59 | disposition home or self-care (01) ==
LOC: RAD 12:31
PROVIDERS: Visit Provider Student in an Organized Health Care Education/Training Program
DX: S61.412A Laceration without foreign body of left hand, initial encounter (principal); W26.8XXA Contact with other sharp object(s), not elsewhere classified, initial encounter
CPT/HCPCS: 73120